=== PATIENT | male | born 1975 | race Caucasian/White ===

== ENCOUNTER 2016-05-30 09:55 | Emergency (ER) | payer MEDICARE ==
[~2016-05-30] VITALS: Ht 172.7 cm; Wt 107.0 kg
[~2016-05-30 09:55] MED LIST: ACID1TAB7 PO; DOXY100T PO; FOLI-17 PO; GABA100C8 PO; GUAI200T3 PO; LEVO25TA2 PO; METR500T PO; MULT-87 PO; PRED20TA PO; THIA100T6 PO
[2016-05-30] MEDS ORDERED: MORPHINE SULFATE 4 MG/ML, 1ML IVPush PRN (10:30)
[2016-05-30] MEDS ORDERED: SODIUM CHLORIDE FLUSH 10ML SYR IVF ONE (10:30)
[2016-05-30] MEDS ORDERED: SODIUM CHLORIDE 0.9% 1,000ML IVBOLUS ONE (10:30)
[2016-05-30] MEDS ORDERED: ONDANSETRON 2MG/ML, 2ML IVPush ONE (10:30)
[2016-05-30] MEDS ORDERED: MORPHINE SULFATE 4 MG/ML, 1ML ONE (10:32)
[2016-05-30] MEDS ORDERED: ONDANSETRON 2MG/ML, 2ML ONE (10:32)
[2016-05-30 11:13] VITALS: BP 104/52
[2016-05-30 11:27] LABS: BLOOD UREA NITROGEN 13 mg/dL (7-18)
[2016-05-30 12:02] LABS: HEMOGLOBIN 14.5 g/dL (13.7-18.0)
== END 2016-05-30 13:28 | disposition home or self-care (01) ==
LOC: ED 13:17
DX: M79.672 Pain in left foot (principal); M79.671 Pain in right foot; F10.229 Alcohol dependence with intoxication, unspecified; J44.9 Chronic obstructive pulmonary disease, unspecified; Z90.49 Acquired absence of other specified parts of digestive tract
CPT/HCPCS: 36415; 73700; 80048; 80307; 82040; 85025; 87040; 96361; 96374; 96375; 99285; J2405; J7030

== ENCOUNTER 2016-06-07 20:05 | Emergency (ER) | payer MEDICARE ==
[~2016-06-07] VITALS: Ht 170.2 cm; Wt 99.0 kg
[2016-06-07 20:14] VITALS: BP 154/98
== END 2016-06-08 01:22 | disposition home or self-care (01) ==
LOC: ED 20:14
DX: F10.220 Alcohol dependence with intoxication, uncomplicated (principal); J44.9 Chronic obstructive pulmonary disease, unspecified; Z86.19 Personal history of other infectious and parasitic diseases
CPT/HCPCS: 99283